=== PATIENT | female | born 2000 | race Caucasian/White ===

== ENCOUNTER 2022-11-04 19:45 | Emergency (ER) | payer OTHER, SELFPAY ==
[2022-11-04 19:54] VITALS: BP 129/70; PULSE 84; RESP 18; TEMP 37; O2SAT 98; BMI 31.1
[2022-11-04] MEDS: ONDANSETRON 4 MG ODT SL (20:03)
[2022-11-04 23:54] VITALS: BP 124/77; PULSE 68; RESP 18; TEMP 36.4; O2SAT 99
--- NOTE | 2022-11-05 00:40 | ED.HEATRA ---
HPI - Head Injury General Chief complaint: Head Injury Stated complaint: L&I/thinks concussion Time Seen by Provider: 11/05/22 00:40 Source: patient Mode of arrival: Ambulatory History of Present Illness HPI Narrative: Patient is a 22-year-old female who presents today after closed head injury after being hit in the face of the 2 x 4 around 12:30 p.m. while at work. 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 She reports that she saw stars but did not actually pass out. She reports that she gagged and felt nauseous a handful of times since then she is been dizzy lightheaded she is had trouble holding thought. She continues to feel nauseous no numbness tingling or weakness. Related Data Previous Rx's Medication Instructions Recorded ondansetron 4 mg disintegrating 4 mg PO Q8H PRN nausea and 11/05/22 tablet vomiting #10 tabs Allergies Allergy/AdvReac Type Severity Reaction Status Date / Time No Known Drug Allergies Allergy Verified 11/04/22 19:54 Review of Systems Review of Systems ROS Unobtainable: All systems reviewed & are unremarkable except as noted in HPI and below Patient History Social History Smoking Status: Never smoker Smoking Status: Never smoker alcohol intake frequency: holidays/special occasions only Substance Use Type: marijuana Exam Initial Vital Signs Initial Vital Signs: Vital Signs Temperature 98.6 F 11/04/22 19:54 Pulse Rate 84 11/04/22 19:54 Respiratory Rate 18 11/04/22 19:54 Blood Pressure 129/70 11/04/22 19:54 Pulse Oximetry 98 11/04/22 19:54 Oxygen Delivery Method Room Air 11/04/22 19:54 GENERAL: Alert pleasant 22-year-old female HEENT: Head swelling over temporal area no significant tenderness, EOMI NECK: No vertebral tenderness no step-off CARDIOVASCULAR: Regular rate and rhythm without murmurs, rubs or gallops. RESPIRATORY: Breath sounds equal bilaterally, no wheezes rales or rhonchi. ABDOMEN: Soft, nontender. Normoactive bowel sounds all 4 quadrants. No guarding or rebound. EXTREMITIES: Normal range of motion, no clubbing or edema. Neurovascularly intact NEUROLOGICAL: Alert and oriented x4.Normal gait and speech. 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 Course Orders Ordered: ED Orders 11/05/22 00:46 CT head/brain wo con Stat Discontinued Medications Ketorolac Tromethamine (Ketorolac 30 Mg/Ml Vial) 30 mg IM NOW ONE Stop: 11/05/22 00:47 Last Admin: 11/05/22 00:50 Dose: 30 mg Documented By: KRYSTAL Ondansetron HCl (Ondansetron 4 Mg Odt) 4 mg SL NOW PRN PRN Reason: Nausea And Vomiting Last Admin: 11/04/22 20:03 Dose: 4 mg Documented By: TREVON Ondansetron HCl (Ondansetron 4 Mg Odt Prepack) 1 bottle MISC SEEINSTR ONE Stop: 11/05/22 02:03 Last Admin: 11/05/22 02:05 Dose: 1 bottle Documented By: TEMIG Vital Signs Vital signs: Vital Signs - 8 hr 11/04/22 23:54 11/05/22 02:06 Temperature 97.5 F L Pulse Rate 68 65 Respiratory Rate 18 16 Blood Pressure 124/77 124/79 Pulse Oximetry 99 100 Oxygen Delivery Method Room Air Room Air MDM - Head Injury MDM Narrative Medical decision making narrative: 22-year-old female after closed head injury. Who reports that she free gets her train of thought this happens while I am speaking to her. No nausea or vomiting in the ED. She does not have any focal deficits not on antiplatelet or anticoagulation medication. Head CT is negative. She likely has a concussion. She is given Zofran. Discussion with patient about education closed head injury and not to get a 2nd concussion. Discharge Plan Departure Patient Disposition: Home Clinical Impression: Closed head injury Instructions: Concussion Activity Restrictions/Additional Instructions: *You have been diagnosed with concussion *What to do: At this time rest. He may have a mild to moderate headache this is to be expected you may feel nauseous. Screen time may exacerbate your headache you may have a difficulty time concentrating. Please see PCP for further instructions *Continue to take medications as directed Zofran 4 mg every 8 hours if needed for nausea vomiting Tylenol 1000 mg every 6 hours if needed for [id number] pain Motrin 600 mg every 6 hours if needed for [id number] pain *Follow up with your primary care provider in 2-3 days or call [phone] *Return to ER if you should have increasing pain numbness tingling weakness persistent vomiting or any new, worsening or concerning symptoms Prescriptions: New ondansetron 4 mg tablet,disintegrating 4 mg PO Q8H PRN (Reason: nausea and vomiting) Qty: 10 0RF Stand Alone Forms: Patient Portal/API
--- NOTE | 2022-11-05 00:46 | DI.CT.S_ITS ---
PROCEDURE: CT HEAD/BRAIN WO CON INDICATIONS: closed head injury vomiting confusion TECHNIQUE: Noncontrast 4.5 mm thick angled axial sections acquired from the foramen magnum to the vertex, with coronal and sagittal reformats. For radiation dose reduction, the following was used: automated exposure control, adjustment of mA and/or kV according to patient size. COMPARISON: None. FINDINGS: Image quality: Excellent. CSF spaces: Basal cisterns are patent. No extra-axial fluid collections. Ventricles are normal in size and shape. Brain: No intracranial hemorrhage, mass, or mass effect. Murillo-white matter interface appears preserved. Skull and face: Calvarium and visualized facial bones are intact, without suspicious lesions. Sinuses: Visualized sinuses and mastoids are clear. IMPRESSION: 1. No acute intracranial abnormality. Dictated by: Tushar Martin M.D. on 11/05/2022 at 1:24 Approved by: Tushar Martin M.D. on 11/05/2022 at 1:25
[2022-11-05] MEDS: KETOROLAC 30 MG/ML VIAL IM (00:50)
[2022-11-05] MEDS: ONDANSETRON 4 MG ODT PREPACK 1 BOTTLE MISC (02:05)
[2022-11-05 02:06] VITALS: BP 124/79; PULSE 65; RESP 16; O2SAT 100
== END 2022-11-05 02:07 | disposition home or self-care (01) ==
PROVIDERS: Emergency Provider Emergency Medicine
DX: S06.0X0A Concussion without loss of consciousness, initial encounter (principal); W22.8XXA Striking against or struck by other objects, initial encounter; Y99.0 Civilian activity done for income or pay
CPT/HCPCS: 70450; 96372; 99284; J1885